=== PATIENT | male | born 1955 | race African-American/Black ===

== ENCOUNTER 2021-06-27 08:16 | Emergency (ER) | payer OTHER ==
[~2021-06-27] VITALS: Ht 180.3 cm; Wt 83.9 kg
[2021-06-27 08:29] VITALS: BP_SYST 168
--- NOTE | 2021-06-27 08:29 | NUR ---
Placed in room 2 . Placed on community marketing coordinator, blood pressure machine and pulse oximeter. To gown for exam. Side rails up.
--- NOTE | 2021-06-27 08:31 | NUR ---
PT BIBA FROM HOME C/O GENERALIZED WEAKNESS, PT STATES HE FELT WEAK SUDDENLY THIS AM, PER EMS PT HYPERTENSIVE 170/120. UPON ARRIVAL PT BP 168/99 OTHER V/S STABLE, NO SOB, NO CP, DENIES ANY PAIN, DENIES NUMBNESS, NO FACIAL DROOP. STATES HE DIDN'T TAKE HIS BP MED THIS AM. PT IS [id number]
--- NOTE | 2021-06-27 08:57 | NUR ---
ER DR. ISBELL AT THE BEDSIDE EXAMINING PT
--- NOTE | 2021-06-27 09:05 | NUR ---
PT STATES HE DOES NOT KNOW WHAT MEDICATIONS HE TAKES AND HAS STOPPED TAKING HIS MEDICATIONS "MONTHS AGO"
--- NOTE | 2021-06-27 09:15 | NUR ---
CHRISTOPH OLIVEIRA FOR STATUS UPDATE
--- NOTE | 2021-06-27 09:23 | NUR ---
PORTABLE X-RAY AT THE BEDSIDE
--- NOTE | 2021-06-27 09:26 | NUR ---
LAB AT THE BEDSIDE FOR BLOOD DRAW
[2021-06-27 09:51] LABS: BASOPHILS % (AUTO) 0.6 % (0.0-2.0); EOSINOPHILS % (AUTO) 0.8 % (0.0-4.0); HEMATOCRIT 44.2 % (36-54); HEMOGLOBIN 14.9 g/dL (14.0-18.0); LYMPHOCYTES # (AUTO) 1.3 K/uL (1.0-5.5); MEAN CORPUSCULAR HEMOGLOBIN 31 pg (27-31); MEAN CORPUSCULAR HGB CONC 34 % (32-36); MEAN CORPUSCULAR VOLUME 91 fL (79.0-98.0); MONOCYTES # (AUTO) 0.4 K/uL (0.0-1.0); MONOCYTES % (AUTO) 13.6 % (1.7-9.3); NEUTROPHILS # (AUTO) 1.3 K/uL (1.8-7.7); PLATELET COUNT (AUTO) 167 K/uL (130-430); RED BLOOD CELL COUNT(AUTO) 4.87 MIL/uL (4.2-6.2); RED CELL DISTRIBUTION WIDTH 14.8 % (9.0-15.0); WHITE BLOOD COUNT (AUTO) 3.1 K/uL (4.8-10.8)
[2021-06-27 09:55] LABS: CALCIUM 10.1 mg/dL (8.4-11.0); CREATININE 1.38 mg/dL (0.55-1.30); POTASSIUM 4.1 mmol/L (3.5-5.1)
[2021-06-27 09:59] LABS: TOTAL BILIRUBIN 0.6 mg/dL (0.0-1.0)
--- NOTE | 2021-06-27 11:00 | NUR ---
PT AMBULATES TO BATHROOM WITH STEADY GAIT
--- NOTE | 2021-06-27 11:29 | NUR ---
Patient given written and verbal discharge instructions and verbalizes understanding. ER MD discussed with patient the results and treatment provided. Patient in stable condition. ID arm band removed. NO Rx given. Patient educated on pain management and to follow up with PMD. Pain Scale 0/10. Opportunity for questions provided and answered. Medication side effect fact sheet provided.
[2021-06-27 11:30] VITALS: BP_SYST 176
== END 2021-06-27 11:28 | disposition home or self-care (01) ==
LOC: SED 08:16
DX: F41.9 Anxiety disorder, unspecified (principal); I10 Essential (primary) hypertension; G47.00 Insomnia, unspecified
CPT/HCPCS: 36415; 70450-TC; 71045; 76376; 80053; 83880; 84484; 85025; 93005; 99285

== ENCOUNTER 2023-08-03 13:18 | Inpatient (IN) | payer OTHER ==
[~2023-08-03] VITALS: Ht 180.3 cm; Wt 63.5 kg
[2023-08-03 13:50] VITALS: BP_SYST 114; PULSE 81; RESP 18; TEMP 97.4; O2SAT 98
[2023-08-03 17:48] LABS: BASOPHILS % (AUTO) 0.4 % (0.0-2.0); EOSINOPHILS % (AUTO) 0.5 % (0.0-4.0); HEMATOCRIT 39.8 % (36-54); LYMPHOCYTES # (AUTO) 0.9 K/uL (1.0-5.5); LYMPHOCYTES % (AUTO) 18.8 % (20.5-51.5); MEAN CORPUSCULAR HEMOGLOBIN 31 pg (27-31); MEAN CORPUSCULAR HGB CONC 33 % (32-36); MEAN CORPUSCULAR VOLUME 96 fL (79.0-98.0); MONOCYTES # (AUTO) 0.4 K/uL (0.0-1.0); MONOCYTES % (AUTO) 8.6 % (1.7-9.3); NEUTROPHILS # (AUTO) 3.3 K/uL (1.8-7.7); NEUTROPHILS % (AUTO) 71.7 % (40.0-70.0); PLATELET COUNT (AUTO) 196 K/uL (130-430); RED BLOOD CELL COUNT(AUTO) 4.16 MIL/uL (4.2-6.2); RED CELL DISTRIBUTION WIDTH 14.7 % (9.0-15.0); WHITE BLOOD COUNT (AUTO) 4.6 K/uL (4.8-10.8)
[2023-08-03 18:01] LABS: ALANINE AMINOTRANSFERASE 34 U/L (12-78); ALBUMIN 3.9 g/dL (3.4-4.8); ANION GAP 5 (5-15); ASPARTATE AMINOTRANSFERASE 26 U/L (10-37); CALCIUM 9.9 mg/dL (8.4-11.0); CARBON DIOXIDE 30 mmol/L (23-29); CHLORIDE 105 mmol/L (98-107); CREATININE 1.41 mg/dL (0.55-1.30); GLUCOSE 92 mg/dL (74-106); POTASSIUM 4.5 mmol/L (3.5-5.1); PROTHROMBIN TIME 10.8 SECS (9.5-12.5); SODIUM SERUM 140 mmol/L (136-145); TOTAL BILIRUBIN 0.2 mg/dL (0.0-1.0); TOTAL PROTEIN, SERUM 8.3 g/dL (6.4-8.3); UREA NITROGEN, BLOOD 22 mg/dL (8-21)
[2023-08-03 18:03] LABS: GFR AFRICAN AMERICAN 64 mL/min (>90); GFR NON AFRICAN-AMERICAN 53 mL/min (>90)
[2023-08-03 18:04] LABS: LIPASE 54 U/L (16-77)
[2023-08-03] MEDS ORDERED: NACL 0.9% 1,000 ML IV ONE (19:00)
[2023-08-03] MEDS: D5/0.45 NS 1,000 ML IV SCH (23:56)
[2023-08-04] MEDS ORDERED: HYDR25TA4 PO (03:31)
[2023-08-04] MEDS: D5/0.45 NS 1,000 ML IV SCH (11:00)
[2023-08-04] MEDS ORDERED: ACETAMINOPHEN 325 MG TABLET PO PRN ×2 (14:15→14:30)
[2023-08-04] MEDS ORDERED: NALOXONE HCL 0.4 MG/ML AMP (NARCAN) IVP PRN ×2 (14:15)
[2023-08-04] MEDS ORDERED: ONDANSETRON HCL 4 MG/2 ML VIAL IVP PRN (14:15)
[2023-08-04] MEDS ORDERED: LORazepam 2 MG/ML VIAL IVP PRN (14:15)
[2023-08-04] MEDS ORDERED: HYDROcodone/ACETAMIN 5-325 MG TAB (NORCO/ VICODIN) PO PRN ×2 (14:15→14:30)
[2023-08-04 14:38] LABS: BASOPHILS % (AUTO) 0.6 % (0.0-2.0); EOSINOPHILS # (AUTO) 0.1 K/uL (0.0-0.4); EOSINOPHILS % (AUTO) 1.6 % (0.0-4.0); HEMATOCRIT 32.7 % (36-54); HEMOGLOBIN 10.9 g/dL (14.0-18.0); LYMPHOCYTES # (AUTO) 1.2 K/uL (1.0-5.5); LYMPHOCYTES % (AUTO) 35.6 % (20.5-51.5); MEAN CORPUSCULAR HEMOGLOBIN 31 pg (27-31); MEAN CORPUSCULAR HGB CONC 33 % (32-36); MEAN CORPUSCULAR VOLUME 95 fL (79.0-98.0); MONOCYTES # (AUTO) 0.4 K/uL (0.0-1.0); MONOCYTES % (AUTO) 11.8 % (1.7-9.3); NEUTROPHILS # (AUTO) 1.7 K/uL (1.8-7.7); NEUTROPHILS % (AUTO) 50.4 % (40.0-70.0); PLATELET COUNT (AUTO) 154 K/uL (130-430); RED BLOOD CELL COUNT(AUTO) 3.46 MIL/uL (4.2-6.2); RED CELL DISTRIBUTION WIDTH 14.4 % (9.0-15.0); WHITE BLOOD COUNT (AUTO) 3.4 K/uL (4.8-10.8)
[2023-08-04 14:58] LABS: CALCIUM 8.1 mg/dL (8.4-11.0); CREATININE 1.12 mg/dL (0.55-1.30); POTASSIUM 3.7 mmol/L (3.5-5.1)
[2023-08-04 17:36] VITALS: BP_SYST 143; PULSE 76; RESP 18; TEMP 97.3; O2SAT 95
[2023-08-04] MEDS ORDERED: NORMAL SALINE 5 ML DISP.SYRIN IVF SCH (22:00)
[2023-08-05] MEDS ORDERED: HYDROCHLOROTHIAZIDE 25 MG TABLET (HCTZ) PO SCH (09:00)
== END 2023-08-04 17:36 | disposition home or self-care (01) | DRG 312 ==
LOC: SED 13:18 → STU 22:03
PROVIDERS: ADMIT Preventive Medicine Preventive Medicine/Occupational Environmental Medicine; ATTEND Preventive Medicine Preventive Medicine/Occupational Environmental Medicine
DX: R55 Syncope and collapse (principal); N17.9 Acute kidney failure, unspecified; I10 Essential (primary) hypertension; D72.819 Decreased white blood cell count, unspecified
CPT/HCPCS: 36415; 70450-TC; 71045; 71275; 76376; 80048; 80053; 83690; 83880; 84484; 85025; 85379; 85610-TC; 85730-TC; 93005; 96360; 99285; G0378

== ENCOUNTER 2024-02-03 08:36 | Inpatient (IN) | payer OTHER ==
[~2024-02-03] VITALS: Ht 165.1 cm; Wt 65.8 kg
[~2024-02-03 08:36] MED LIST: HYDR25TA4 PO
[2024-02-03 08:59] VITALS: BP_SYST 128; PULSE 94; RESP 16; TEMP 98; O2SAT 98
[2024-02-03 09:15] LABS: BASOPHILS % (AUTO) 0.4 % (0.0-2.0); EOSINOPHILS % (AUTO) 0.4 % (0.0-4.0); HEMATOCRIT 39.8 % (36-54); HEMOGLOBIN 13.4 g/dL (14.0-18.0); MEAN CORPUSCULAR HEMOGLOBIN 32 pg (27-31); MEAN CORPUSCULAR HGB CONC 34 % (32-36); MEAN CORPUSCULAR VOLUME 93 fL (79.0-98.0); MONOCYTES # (AUTO) 0.5 K/uL (0.0-1.0); MONOCYTES % (AUTO) 10.5 % (1.7-9.3); NEUTROPHILS # (AUTO) 3.3 K/uL (1.8-7.7); NEUTROPHILS % (AUTO) 68.7 % (40.0-70.0); PLATELET COUNT (AUTO) 176 K/uL (130-430); RED BLOOD CELL COUNT(AUTO) 4.27 MIL/uL (4.2-6.2); RED CELL DISTRIBUTION WIDTH 13.8 % (9.0-15.0); WHITE BLOOD COUNT (AUTO) 4.8 K/uL (4.8-10.8)
[2024-02-03 09:35] LABS: ALANINE AMINOTRANSFERASE 19 U/L (12-78); ALBUMIN 3.4 g/dL (3.4-4.8); ANION GAP 7 (5-15); ASPARTATE AMINOTRANSFERASE 18 U/L (10-37); BILIRUBIN,DIRECT 0.1 mg/dL (0.0-0.3); CALCIUM 9.3 mg/dL (8.4-11.0); CARBON DIOXIDE 32 mmol/L (23-29); CHLORIDE 99 mmol/L (98-107); CREATININE 1.45 mg/dL (0.55-1.30); GLUCOSE 75 mg/dL (74-106); POTASSIUM 4.1 mmol/L (3.5-5.1); SODIUM SERUM 138 mmol/L (136-145); TOTAL BILIRUBIN 0.6 mg/dL (0.0-1.0); TOTAL PROTEIN, SERUM 7.9 g/dL (6.4-8.3); UREA NITROGEN, BLOOD 15 mg/dL (8-21)
[2024-02-03 09:37] LABS: GFR AFRICAN AMERICAN 62 mL/min (>90); GFR NON AFRICAN-AMERICAN 51 mL/min (>90)
[2024-02-03 09:38] LABS: BLOOD, URINE 3+ (NEGATIVE); COLOR,URINE YELLOW (YELLOW); GLUCOSE,URINE NEGATIVE (NEGATIVE); KETONES,URINE TRACE (NEGATIVE); LEUKOCYTE ESTERASE ,URINE NEGATIVE (NEGATIVE); NITRITE, URINE NEGATIVE (NEGATIVE); PROTEIN URINE 3+ (NEGATIVE)
[2024-02-03 09:40] LABS: INR 1.1 (0.80-1.20); PROTHROMBIN TIME 11.5 SECS (9.5-12.5)
[2024-02-03 09:42] LABS: CLARITY/URINE SLIGHTLY HAZY (CLEAR)
[2024-02-03 10:02] LABS: BACTERIA,URINE MODERATE /HPF (None Seen); BILIRUBIN,URINE 1+ (NEGATIVE); MUCUS,URINE 1+ /LPF (None Seen); RBC,URINE 20-50 /HPF (0-3)
[2024-02-03] MEDS ORDERED: HYDROcodone/ACETAMIN 5-325 MG TAB (NORCO/ VICODIN) PO PRN (12:45)
[2024-02-03] MEDS ORDERED: MORPHINE 2 MG/ML INJ. SYRINGE IVP PRN (12:45)
[2024-02-03] MEDS ORDERED: ONDANSETRON HCL 4 MG/2 ML VIAL IVP PRN (12:45)
[2024-02-03] MEDS ORDERED: ALBUTEROL SULFATE 0.083% 2.5 MG/3 ML VIAL.NEB INH PRN (12:45)
[2024-02-03] MEDS ORDERED: ACETAMINOPHEN 325 MG TABLET PO PRN ×2 (12:45→13:15)
[2024-02-03 12:50] VITALS: PULSE 94; O2SAT 98
[2024-02-03] MEDS: ASPIRIN 81 MG TAB.CHEW PO ONE (13:02)
[2024-02-03] MEDS ORDERED: hydrALAZINE HCL 20 MG/ML VIAL ONE (14:04)
[2024-02-03] MEDS ORDERED: LABETALOL HCL 20 MG/4 ML CARTRIDGE IVP ONE (14:44)
[2024-02-03] MEDS: hydrALAZINE HCL 20 MG/ML VIAL IVP ONE (14:51)
[2024-02-03] MEDS: LABETALOL HCL 20 MG/4 ML CARTRIDGE IVP ONE (14:51)
[2024-02-03] MEDS: NIFEdipine 30 MG TAB.ER.24 PO ONE (18:28)
[2024-02-03] MEDS: NACL 0.9% 1,000 ML IV SCH (18:28)
[2024-02-03] MEDS ORDERED: AMLO10TA88 PO (19:12)
[2024-02-03] MEDS ORDERED: ERGO1250 PO (19:12)
[2024-02-03] MEDS: QUEtiapine FUMARATE 25 MG TABLET PO SCH (20:12)
[2024-02-03] MEDS: cefTRIAXone 1 GM in D5W 50 ML IV SCH (20:15)
[2024-02-03] MEDS ORDERED: cefTRIAXone 1 GM VIAL ONE (20:16)
[2024-02-03 23:00] VITALS: BP_SYST 177; PULSE 115; RESP 20; TEMP 98.8
[2024-02-03] MEDS: hydrALAZINE HCL 20 MG/ML VIAL IVP PRN (23:37)
[2024-02-04] VITALS (7 sets, daily range): BP systolic 98–151; PULSE 81–111; RESP 16–18; TEMP 97.3–99.7; O2SAT 98–100
[2024-02-04] MEDS: HYDROcodone/ACETAMIN 10-325 MG TAB PO PRN (02:25)
[2024-02-04] MEDS: LORazepam 2 MG/ML VIAL IVP PRN (03:00)
[2024-02-04] MEDS: LORazepam 2 MG/ML VIAL ONE (03:03)
[2024-02-04 04:29] LABS: BASOPHILS % (AUTO) 0.4 % (0.0-2.0); EOSINOPHILS % (AUTO) 0.8 % (0.0-4.0); HEMATOCRIT 36.6 % (36-54); HEMOGLOBIN 12.4 g/dL (14.0-18.0); LYMPHOCYTES # (AUTO) 1.1 K/uL (1.0-5.5); LYMPHOCYTES % (AUTO) 33.1 % (20.5-51.5); MEAN CORPUSCULAR HEMOGLOBIN 31 pg (27-31); MEAN CORPUSCULAR HGB CONC 34 % (32-36); MEAN CORPUSCULAR VOLUME 92 fL (79.0-98.0); MONOCYTES # (AUTO) 0.4 K/uL (0.0-1.0); MONOCYTES % (AUTO) 11.9 % (1.7-9.3); NEUTROPHILS # (AUTO) 1.8 K/uL (1.8-7.7); NEUTROPHILS % (AUTO) 53.8 % (40.0-70.0); PLATELET COUNT (AUTO) 171 K/uL (130-430); RED BLOOD CELL COUNT(AUTO) 3.97 MIL/uL (4.2-6.2); RED CELL DISTRIBUTION WIDTH 13.8 % (9.0-15.0); WHITE BLOOD COUNT (AUTO) 3.4 K/uL (4.8-10.8)
[2024-02-04 05:02] LABS: ALBUMIN 2.9 g/dL (3.4-4.8); CALCIUM 8.8 mg/dL (8.4-11.0); CREATININE 1.31 mg/dL (0.55-1.30); POTASSIUM 3.1 mmol/L (3.5-5.1); TOTAL BILIRUBIN 0.5 mg/dL (0.0-1.0); TOTAL PROTEIN, SERUM 6.9 g/dL (6.4-8.3)
[2024-02-04] MEDS: POTASSIUM CHLORIDE 20 MEQ TABLET.ER PO ONE (06:48)
[2024-02-04] MEDS: NIFEdipine 30 MG TAB.ER.24 PO SCH (09:21)
[2024-02-04] MEDS: ASPIRIN 81 MG TAB.CHEW PO SCH (09:21)
[2024-02-04] MEDS ORDERED: METOPROLOL TARTRATE 25 MG TABLET PO ONE (14:30)
[2024-02-04] MEDS: amLODIPine BESYLATE 10 MG TABLET PO ONE (16:43)
[2024-02-04 17:40] LABS: BARBITURATE, URINE NEGATIVE (NEG <=200); BENZODIAZEPINE, URINE NEGATIVE (NEG <=150); METHAMPHETAMINES SCREEN,URINE NEGATIVE (NEG <=500); URINE AMPHETAMINE NEGATIVE (NEG <=500); URINE METHADONE NEGATIVE (NEG <=200)
[2024-02-04 17:41] LABS: CANNABINOID, URINE NEGATIVE (NEG <=50); COCAINE, URINE NEGATIVE (NEG <=150); OPIATE, URINE POSITIVE (NEG <=100); PHENCYCLIDINE SCREEN,URINE NEGATIVE (NEG <=25); UR TRICYCLIC ANTIDEPRESSANTS NEGATIVE (NEG <=300); URINE OXYCODONE SCREEN NEGATIVE (NEG <=100)
[2024-02-04] MEDS ORDERED: METOPROLOL TARTRATE 25 MG TABLET PO SCH (21:00)
[2024-02-05 04:09] VITALS: BP_SYST 139; PULSE 81; RESP 18; TEMP 98.7
[2024-02-05 04:38] LABS: BASOPHILS % (AUTO) 0.5 % (0.0-2.0); EOSINOPHILS # (AUTO) 0.1 K/uL (0.0-0.4); EOSINOPHILS % (AUTO) 1.6 % (0.0-4.0); HEMATOCRIT 37.5 % (36-54); HEMOGLOBIN 12.8 g/dL (14.0-18.0); LYMPHOCYTES % (AUTO) 22.6 % (20.5-51.5); MEAN CORPUSCULAR HEMOGLOBIN 32 pg (27-31); MEAN CORPUSCULAR HGB CONC 34 % (32-36); MEAN CORPUSCULAR VOLUME 92 fL (79.0-98.0); MONOCYTES # (AUTO) 0.7 K/uL (0.0-1.0); MONOCYTES % (AUTO) 15.4 % (1.7-9.3); NEUTROPHILS # (AUTO) 2.6 K/uL (1.8-7.7); NEUTROPHILS % (AUTO) 59.9 % (40.0-70.0); PLATELET COUNT (AUTO) 173 K/uL (130-430); RED BLOOD CELL COUNT(AUTO) 4.06 MIL/uL (4.2-6.2); RED CELL DISTRIBUTION WIDTH 13.6 % (9.0-15.0); WHITE BLOOD COUNT (AUTO) 4.3 K/uL (4.8-10.8)
[2024-02-05 05:03] LABS: ALBUMIN 2.9 g/dL (3.4-4.8); CALCIUM 8.8 mg/dL (8.4-11.0); CREATININE 1.25 mg/dL (0.55-1.30); POTASSIUM 3.9 mmol/L (3.5-5.1); TOTAL BILIRUBIN 0.5 mg/dL (0.0-1.0)
[2024-02-05 07:36] VITALS: BP_SYST 108; PULSE 89; RESP 16; TEMP 98.2; O2SAT 97
[2024-02-05 08:20] VITALS: O2SAT 97
[2024-02-05] MEDS: amLODIPine BESYLATE 10 MG TABLET PO SCH (10:09)
[2024-02-05 11:20] VITALS: BP_SYST 90; PULSE 111; RESP 17; TEMP 98.2; O2SAT 98
[2024-02-05 16:10] VITALS: BP_SYST 110; PULSE 91; RESP 18; TEMP 98.2; O2SAT 100
[2024-02-05 20:00] VITALS: BP_SYST 118; PULSE 90; RESP 16; TEMP 98.7; O2SAT 96
[2024-02-06] VITALS (8 sets, daily range): BP systolic 120–129; PULSE 82–99; RESP 16–17; TEMP 98–98.8; O2SAT 97–100
[2024-02-06 03:59] LABS: BASOPHILS % (AUTO) 0.5 % (0.0-2.0); EOSINOPHILS # (AUTO) 0.1 K/uL (0.0-0.4); EOSINOPHILS % (AUTO) 2.3 % (0.0-4.0); HEMATOCRIT 35.6 % (36-54); HEMOGLOBIN 12.3 g/dL (14.0-18.0); LYMPHOCYTES # (AUTO) 1.1 K/uL (1.0-5.5); LYMPHOCYTES % (AUTO) 31.9 % (20.5-51.5); MEAN CORPUSCULAR HEMOGLOBIN 32 pg (27-31); MEAN CORPUSCULAR HGB CONC 35 % (32-36); MEAN CORPUSCULAR VOLUME 92 fL (79.0-98.0); MONOCYTES # (AUTO) 0.5 K/uL (0.0-1.0); MONOCYTES % (AUTO) 14.6 % (1.7-9.3); NEUTROPHILS # (AUTO) 1.8 K/uL (1.8-7.7); NEUTROPHILS % (AUTO) 50.7 % (40.0-70.0); PLATELET COUNT (AUTO) 165 K/uL (130-430); RED BLOOD CELL COUNT(AUTO) 3.89 MIL/uL (4.2-6.2); RED CELL DISTRIBUTION WIDTH 13.8 % (9.0-15.0); WHITE BLOOD COUNT (AUTO) 3.5 K/uL (4.8-10.8)
[2024-02-06 04:12] LABS: ALBUMIN 2.7 g/dL (3.4-4.8); CALCIUM 8.6 mg/dL (8.4-11.0); CREATININE 1.34 mg/dL (0.55-1.30); POTASSIUM 3.9 mmol/L (3.5-5.1); TOTAL BILIRUBIN 0.4 mg/dL (0.0-1.0); TOTAL PROTEIN, SERUM 6.8 g/dL (6.4-8.3)
[2024-02-06] MEDS: NACL 0.9% 1,000 ML IV SCH (14:25)
[2024-02-07] VITALS (8 sets, daily range): BP systolic 120–147; PULSE 76–101; RESP 16–17; TEMP 97–98.7; O2SAT 97–99
[2024-02-07 03:58] LABS: BASOPHILS % (AUTO) 0.6 % (0.0-2.0); EOSINOPHILS # (AUTO) 0.1 K/uL (0.0-0.4); HEMATOCRIT 35.9 % (36-54); HEMOGLOBIN 12.4 g/dL (14.0-18.0); LYMPHOCYTES # (AUTO) 1.3 K/uL (1.0-5.5); LYMPHOCYTES % (AUTO) 32.8 % (20.5-51.5); MEAN CORPUSCULAR HEMOGLOBIN 32 pg (27-31); MEAN CORPUSCULAR HGB CONC 35 % (32-36); MEAN CORPUSCULAR VOLUME 92 fL (79.0-98.0); MONOCYTES # (AUTO) 0.6 K/uL (0.0-1.0); MONOCYTES % (AUTO) 15.7 % (1.7-9.3); NEUTROPHILS # (AUTO) 1.9 K/uL (1.8-7.7); NEUTROPHILS % (AUTO) 47.9 % (40.0-70.0); PLATELET COUNT (AUTO) 172 K/uL (130-430); RED BLOOD CELL COUNT(AUTO) 3.89 MIL/uL (4.2-6.2); RED CELL DISTRIBUTION WIDTH 13.4 % (9.0-15.0); WHITE BLOOD COUNT (AUTO) 3.9 K/uL (4.8-10.8)
[2024-02-07 04:20] LABS: ALBUMIN 2.7 g/dL (3.4-4.8); CALCIUM 8.6 mg/dL (8.4-11.0); CREATININE 1.18 mg/dL (0.55-1.30); POTASSIUM 3.9 mmol/L (3.5-5.1); TOTAL BILIRUBIN 0.3 mg/dL (0.0-1.0); TOTAL PROTEIN, SERUM 6.8 g/dL (6.4-8.3)
[2024-02-07] MEDS ORDERED: ASA81 PO (16:33)
[2024-02-07] MEDS ORDERED: SER25 PO (16:33)
[2024-02-07] MEDS ORDERED: CEPH750C7 PO (16:33)
[2024-02-08] VITALS: BP_SYST 140; PULSE 90; RESP 16; TEMP 98.5; O2SAT 99
[2024-02-08 08:20] VITALS: O2SAT 98
[2024-02-08 11:32] VITALS: BP_SYST 132; PULSE 75; RESP 17; TEMP 97.8; O2SAT 99
== END 2024-02-08 12:00 | disposition home or self-care (01) | DRG 682 ==
LOC: SED 08:36 → SMU 13:39 → OBSVTOIN 14:46 → SMU 22:01 → STU 22:19 → SMU 02-07 23:00
PROVIDERS: ADMIT Family Medicine; ATTEND Family Medicine
PROC: 4A00X4Z Measurement of Central Nervous Electrical Activity, External Approach (ICD-10-PCS; principal; 2024-02-03)
DX: N17.9 Acute kidney failure, unspecified (principal); G93.41 Metabolic encephalopathy; N39.0 Urinary tract infection, site not specified; G45.9 Transient cerebral ischemic attack, unspecified; I16.0 Hypertensive urgency; G30.9 Alzheimer's disease, unspecified; F02.80 Dementia in other diseases classified elsewhere, unspecified severity, without behavioral disturbance, psychotic disturbance, mood disturbance, and anxiety; I10 Essential (primary) hypertension; Z86.73 Personal history of transient ischemic attack (TIA), and cerebral infarction without residual deficits; Z79.899 Other long term (current) drug therapy; Z79.82 Long term (current) use of aspirin; Z79.51 Long term (current) use of inhaled steroids
CPT/HCPCS: 36415; 70450-TC; 70551; 71045; 80048; 80053; 80076; 80307; 81000; 81001; 81015; 82140; 83880; 84484; 85025; 85610; 85730; 87086; 93005; 94070; 94760; 95816; 97110-GP; 97112-GP; 97116-GP; 97530-GP; 99285; G0378; G0482; J0360; J0696; J2060; J7060

== ENCOUNTER 2024-07-01 10:46 | Emergency (ER) | payer OTHER ==
[~2024-07-01] VITALS: Ht 180.3 cm; Wt 68.9 kg
[~2024-07-01 10:46] MED LIST changes: +AMLO10TA88 PO; +ASA81 PO; +CEPH750C7 PO; +ERGO1250 PO; -HYDR25TA4 PO; +SER25 PO
[2024-07-01 10:53] VITALS: BP_SYST 121; PULSE 104; RESP 18; TEMP 97.2; O2SAT 98
[2024-07-01 11:11] LABS: CLARITY/URINE CLEAR (CLEAR); COLOR,URINE YELLOW (YELLOW); GLUCOSE,URINE NEGATIVE (NEGATIVE); KETONES,URINE TRACE (NEGATIVE); LEUKOCYTE ESTERASE ,URINE NEGATIVE (NEGATIVE); NITRITE, URINE POSITIVE (NEGATIVE); PROTEIN URINE 2+ (NEGATIVE)
[2024-07-01 11:59] LABS: BILIRUBIN,URINE NEGATIVE (NEGATIVE); BLOOD, URINE TRACE (NEGATIVE)
[2024-07-01 12:01] LABS: BACTERIA,URINE MODERATE /HPF (None Seen); MUCUS,URINE 2+ /LPF (None Seen); RBC,URINE 0-3 /HPF (0-3); WBC,URINE 0-3 /HPF (0-3)
[2024-07-01 12:06] LABS: BASOPHILS % (AUTO) 0.5 % (0.0-2.0); HEMATOCRIT 43.6 % (36-54); HEMOGLOBIN 14.6 g/dL (14.0-18.0); LYMPHOCYTES # (AUTO) 1.2 K/uL (1.0-5.5); LYMPHOCYTES % (AUTO) 28.2 % (20.5-51.5); MEAN CORPUSCULAR HEMOGLOBIN 31 pg (27-31); MEAN CORPUSCULAR HGB CONC 34 % (32-36); MEAN CORPUSCULAR VOLUME 91 fL (79.0-98.0); MONOCYTES # (AUTO) 0.5 K/uL (0.0-1.0); MONOCYTES % (AUTO) 12.3 % (1.7-9.3); NEUTROPHILS # (AUTO) 2.4 K/uL (1.8-7.7); PLATELET COUNT (AUTO) 189 K/uL (130-430); RED BLOOD CELL COUNT(AUTO) 4.78 MIL/uL (4.2-6.2); RED CELL DISTRIBUTION WIDTH 14.7 % (9.0-15.0); WHITE BLOOD COUNT (AUTO) 4.2 K/uL (4.8-10.8)
[2024-07-01 12:24] LABS: ALANINE AMINOTRANSFERASE 63 U/L (12-78); ALBUMIN 4.4 g/dL (3.4-4.8); ANION GAP 11 (5-15); ASPARTATE AMINOTRANSFERASE 41 U/L (10-37); CALCIUM 10.5 mg/dL (8.4-11.0); CARBON DIOXIDE 31 mmol/L (23-29); CHLORIDE 102 mmol/L (98-107); CREATININE 1.71 mg/dL (0.55-1.30); GLUCOSE 118 mg/dL (74-106); POTASSIUM 4.9 mmol/L (3.5-5.1); SODIUM SERUM 144 mmol/L (136-145); TOTAL BILIRUBIN 0.7 mg/dL (0.0-1.0); TOTAL PROTEIN, SERUM 8.8 g/dL (6.4-8.3); UREA NITROGEN, BLOOD 19 mg/dL (8-21)
[2024-07-01 12:26] LABS: GFR AFRICAN AMERICAN 51 mL/min (>90); GFR NON AFRICAN-AMERICAN 42 mL/min (>90)
[2024-07-01 12:39] LABS: BARBITURATE, URINE NEGATIVE (NEG <=200); BENZODIAZEPINE, URINE NEGATIVE (NEG <=150); CANNABINOID, URINE NEGATIVE (NEG <=50); COCAINE, URINE NEGATIVE (NEG <=150); METHAMPHETAMINES SCREEN,URINE NEGATIVE (NEG <=500); OPIATE, URINE NEGATIVE (NEG <=100); PHENCYCLIDINE SCREEN,URINE NEGATIVE (NEG <=25); UR TRICYCLIC ANTIDEPRESSANTS NEGATIVE (NEG <=300); URINE AMPHETAMINE NEGATIVE (NEG <=500); URINE METHADONE NEGATIVE (NEG <=200); URINE OXYCODONE SCREEN NEGATIVE (NEG <=100)
[2024-07-01 12:45] LABS: COVID19 ANTIGEN SOFIA FIA NEGATIVE (NEGATIVE)
[2024-07-01 12:50] LABS: INFLUENZA TYPE A Negative (NEGATIVE); INFLUENZA TYPE B NEGATIVE (NEGATIVE)
[2024-07-01] MEDS ORDERED: SULF1TAB48 PO (13:12)
[2024-07-01 13:20] VITALS: BP_SYST 124; PULSE 100; RESP 18; TEMP 97.2; O2SAT 98
== END 2024-07-01 13:23 | disposition home or self-care (01) ==
LOC: SED 10:46
DX: N39.0 Urinary tract infection, site not specified (principal); N17.9 Acute kidney failure, unspecified; R42 Dizziness and giddiness; R41.0 Disorientation, unspecified; E78.5 Hyperlipidemia, unspecified; I10 Essential (primary) hypertension; Z20.822 Contact with and (suspected) exposure to COVID-19; Z87.440 Personal history of urinary (tract) infections; Z79.899 Other long term (current) drug therapy; Z79.2 Long term (current) use of antibiotics; Z79.82 Long term (current) use of aspirin
CPT/HCPCS: 36415; 70450-TC; 71045; 80053; 80307; 81000; 81001; 81015; 84484; 85025; 87086; 93005; 99285